=== PATIENT | male | born 1980 ===

== ENCOUNTER 2024-10-30 10:22 | Emergency (ER) | payer OTHER, BC ==
[2024-10-30] MEDS: Diphtheria,Pertussis(Acell),Tetanus Vaccine 0.5 ML Syringe IM ONE (10:39)
== END 2024-10-30 11:53 | disposition home or self-care (01) ==
LOC: MW.ED 10:22
DX: T23.109A Burn of first degree of unspecified hand, unspecified site, initial encounter (principal); T79.9XXA Unspecified early complication of trauma, initial encounter; Z79.899 Other long term (current) drug therapy
CPT/HCPCS: 16020; 90471; 90715; 96374; 99283; A9270; J1171; 99282